=== PATIENT | female | born 1985 | race Hispanic/Latino ===

== ENCOUNTER 2018-05-09 07:43 | Emergency (ER) | payer OTHER ==
[2018-05-09 07:48] VITALS: BMI 31.2
--- NOTE | 2018-05-09 08:22 | ED PDOC ---
HPI: Nose Bleed Time Seen by Provider: 05/09/18 07:48 Chief Complaint (Nursing): ENT Problem Chief Complaint (Provider): Nosebleed History Per: Patient History/Exam Limitations: no limitations Onset/Duration Of Symptoms: Mins (45) Current Symptoms Are (Timing): Still Present Location Of Bleeding: Right Nare Symptoms Have Been: Continuous Associated Symptoms: denies: Syncope, Lightheadedness, Bleeding From Gums, Nasal Congestion, Nasal Drainage Anticoagulant/Antiplatlet Use?: No Recent Aspirin Use: No Additional Complaint(s): 33yo female, otherwise well, EGA of 19 weeks, comes to ER reporting continuous nosebleed from her right nare for the past 45 minutes. Patient states she has a history of nosebleeds but states this is the worst instance; otherwise, no weakness, headache, dizziness, lightheadedness, vaginal bleeding, or other complaints. No anticoagulant use. Patient used affrin at home with no relief of bleeding. Reports she has had cauterization in the past to stop nosebleeds. Patient denies any trauma to her nose. PMD: In [facility] Past Medical History Reviewed: Historical Data, Nursing Documentation, Vital Signs Vital Signs: Last Vital Signs Temp 97 F L 05/09/18 07:46 Pulse 97 H 05/09/18 07:46 Resp 20 05/09/18 07:46 BP 136/74 05/09/18 07:46 Pulse Ox 99 05/09/18 07:46 - Medical History PMH: No Chronic Diseases - Surgical History Surgical History: Back Surgery (spinal fusion) - Family History Family History: States: No Known Family Hx - Allergies Allergies/Adverse Reactions: Allergies Allergy/AdvReac Type Severity Reaction Status Date / Time No Known Allergies Allergy Verified 10/05/15 19:05 Review of Systems ROS Statement: Except As Marked, All Systems Reviewed And Found Negative Constitutional: Negative for: Weakness ENT: Positive for: Other (epistaxis from right nare) Cardiovascular: Negative for: Light Headedness Neurological: Negative for: Headache, Dizziness Physical Exam - Reviewed Nursing Documentation Reviewed: Yes Vital Signs Reviewed: Yes - Physical Exam Appears: Positive for: Non-toxic, No Acute Distress Head Exam: Positive for: ATRAUMATIC, NORMAL INSPECTION, NORMOCEPHALIC Skin: Positive for: Normal Color, Warm Eye Exam: Positive for: EOMI, PERRL ENT: Positive for: Other (dried blood noted to bilateral nares; no active bleeding noted at this time; no septal hematoma, no laceration noted.) Cardiovascular/Chest: Positive for: Regular Rate, Rhythm Respiratory: Positive for: Normal Breath Sounds Neurological/Psych: Positive for: Awake, Alert, Oriented (x 3) - Laboratory Results Result Diagrams: 05/09/18 07:30 - ECG O2 Sat by Pulse Oximetry: 99 (RA) Pulse Ox Interpretation: Normal Medical Decision Making Medical Decision Makinyo female with epistaxis Plan: -- Labs Rhino rocket placed in right nare Patient to be observed in ER for resolution of epistaxis 0825 Patient reports feeling dizzy, IV fluids ordered 0940 Labs reviewed, no clinically significant abnormalities noted. Patient reports feeling much better and is stable for discharge home. Informed to follow up with ENT in 2-3 days; instructed to take antibiotics as prescribed. - Scribe Attestation: Documented by Tamika Peterson acting as a scribe for Sal Becker MD. Provider Attestation: All medical record entries made by the Scribe were at my direction and pers onally dictated by me. I have reviewed the chart and agree that the record accurately reflects my personal performance of the history, physical exam, medical decision making, and the department course for this patient. I have also personally directed, reviewed, and agree with the discharge instructions and disposition. Disposition Counseled Patient/Family Regarding: Need For Followup, Rx Given - Disposition Disposition: Routine/Home Disposition Time: 09:41 Condition: STABLE Forms: Recognition PRO (Swedish)
[2018-05-09] MEDS: Sodium Chloride 0.9% 1,000 ML IV STA (08:32)
[2018-05-09 08:46] LABS: BASO % 0.3 % (0.0-2.0); EOS # 0.2 K/uL (0.0-0.7); EOS % 2.2 % (0.0-4.0); HEMOGLOBIN 11.3 g/dL (12.0-16.0); LYMPH # 1.9 K/uL (1.0-4.3); MEAN CELL VOLUME 87.1 fl (81.0-99.0); MEAN CORPUSCULAR HEMOGLOBIN 29.6 pg (27.0-31.0); MEAN CORPUSCULAR HGB CONC 33.9 g/dL (33.0-37.0); MEAN PLATELET VOLUME 8.8 fl (7.2-11.7); MONO # 0.6 K/uL (0.0-0.8); MONO % 5.8 % (0.0-10.0); NEUT # 7.3 K/uL (1.8-7.0); NEUT % 72.7 % (50.0-75.0); NRBC % 0.1 % (0.0-0.0); RBC 3.81 Mil/uL (3.80-5.20); RED CELL DISTRIBUTION WIDTH 13.5 % (11.5-14.5)
[2018-05-09 09:58] VITALS: BP 118/61; PULSE 88; RESP 16; TEMP 97.2; O2SAT 97
== END 2018-05-09 10:02 | disposition home or self-care (01) ==
LOC: H.ER 07:43
DX: R04.0 Epistaxis (principal)
CPT/HCPCS: 85025; 86850; 86900; 99283; J7030